=== PATIENT | female | born 1990 | race Caucasian/White ===

== ENCOUNTER → 2024-07-07 09:26 | Outpatient (REF) | payer BC, OTHER, SELFPAY ==
[2024-07-07 12:05] LABS: % Basophils 0.4 % (0-2); % Eosinophils 2.8 % (0-6); % Immature Granulocytes 0.1 % (0-0.5); % Lymphocytes 47.5 % (20.5-51.1); % Monocytes 5.6 % (1.7-9.3); % Neutrophils 43.6 % (42.2-75.2); Absolute Eosinophils 0.2 10^3/uL (0-0.7); Absolute Lymphocytes 3.7 10^3/uL (1.2-3.4); Absolute Monocytes 0.4 10^3/uL (0.1-0.6); Absolute Neutrophils 3.4 10^3/uL (1.4-6.5); Hematocrit 41.8 % (37.0-47.0); Hemoglobin 13.5 g/dL (12.0-16.0); Mean Corp Hgb Conc. 32.3 g/dL (33.0-37.0); Mean Corpuscular Hgb 27.3 pg (27.0-31.0); Mean Corpuscular Volume 84.6 fL (81.0-99.0); Mean Platelet Volume 8.9 fL (7.4-10.4); Nucleated Red Blood Cells % 0 %; Platelet Count 222 10^3/uL (130-400); Red Blood Cell Count 4.94 10^6/uL (4.20-5.40); Red Cell Dist. Width 13.7 % (11.5-14.5); White Blood Cell Count 7.9 10^3/uL (4.8-10.8)
[2024-07-07 12:14] LABS: Urine Albumin Negative (Neg - Trace); Urine Bilirubin Negative (Negative); Urine Character Clear (Clear); Urine Color Yellow; Urine Glucose Negative (Negative); Urine Ketone Negative (Negative); Urine Leukocyte Negative (Negative); Urine Nitrite Negative (Negative); Urine Occult Blood Negative (Negative); Urine Specific Gravity 1.025 (<1.030); Urine Urobilinogen Negative (Neg - 1+)
[2024-07-07 12:51] LABS: ALT (SGPT) 19 U/L (0-35); AST (SGOT) 26 U/L (14-36); Albumin 4.8 g/dl (3.5-5.0); Alkaline Phosphatase 100 U/L (38-126); Blood Urea Nitrogen 15 mg/dl (7-17); Calcium 9.4 mg/dl (8.4-10.2); Carbon Dioxide 26 mmol/L (22-30); Chloride 100 mmol/L (98-107); Glucose 84 mg/dl (70-99); HDL Cholesterol 74 mg/dl; LDL Cholesterol, Calculated 104 mg/dl; Potassium 4.4 mmol/L (3.5-5.1); Sodium 138 mmol/L (135-145); Total Bilirubin 0.1 mg/dl (0.2-1.3); Total Cholesterol 207 mg/dl (50-199); Total Protein 7.6 g/dl (6.3-8.2); Triglyceride 148 mg/dl (10-149); Very Low Density Lipoprotein 29 mg/dl (0-30); eGFR > 60.00
[2024-07-07 13:05] LABS: Hepatitis C Antibody Reactive (Negative)
[2024-07-07 13:59] LABS: TSH Reflex To Free T4 3.06 uIU/ml (0.47-4.68)
== END ==
LOC: HWLAB 09:26
PROVIDERS: ATTENDING PHYSICIAN Internal Medicine
DX: Z13.31 Encounter for screening for depression (principal); Z72.0 Tobacco use; Z00.00 Encounter for general adult medical examination without abnormal findings; Z87.898 Personal history of other specified conditions
CPT/HCPCS: 36415; 80053; 80061; 81003; 84443; 85025; 86803; 87389

== ENCOUNTER → 2024-07-13 08:28 | Outpatient (REF) | payer BC, OTHER, SELFPAY | LOC: HWLAB 08:28 | PROVIDERS: ATTENDING PHYSICIAN Internal Medicine | DX: Z86.19 Personal history of other infectious and parasitic diseases (principal) | CPT/HCPCS: 36415; 87902 ==

== ENCOUNTER 2025-04-11 21:41 | Inpatient (IN) | payer BC, SELFPAY ==
[2025-04-11] VITALS (12 sets, daily range): BP systolic 121–153; BP diastolic 78–109; BMI 27.1
--- NOTE | 2025-04-11 14:12 | ED.GENMED ---
History of Present Illness
General
Chief Complaint: Abdominal Symptoms
Source: patient, family (group home mother at bedside she does not really want to stay) and other (Her drug and alcohol abuse sponsor is at bedside)
Exam Limitations: none
Time Seen by Provider: 04/11/25 14:11
Nursing documentation reviewed up to this point in time: agreed with
History of Present Illness
History of Present Illness:
35-year-old female with history of seizures, anxiety, bipolar disorder, depression, substance abuse on presents stating she has not had a bowel movement in over a month. Has been nauseous with vomiting 'here and there,' 2 days ago vomited about 4
times, initially brown colored but that cleared up. Her stomach feels distended.
She smokes tobacco and uses 2-6 bags snorted at a time of Fentanyl 4-6 times a day and per her sponsor and mom, this is overseen by Psychiatrist, drug counselors, etc.
Pt denies CP, has had DELONG past few weeks, denies fever/chills.
Saw her PCP in September and had video conference in January for abd pain and was ordered out pt blood work, upper abd US and Obstruction Series which she never got done as she wasn't feeling well at times and was on vacation.
Past History
Past History
ED Past Medical History: Arrthythmia (Tachycardia), Asthma, Seizures, Psychiatric (Obsessive Compulsive disorder, Anxiety, Depression, Bipolar, substance abuse), Other (IVDA-heroin, urinary retention) and Other (OCD, depression, Cellulitis, Overdose)
ED Past Surgical History: Other (wisdom teeth)
Social History
Tobacco: Smoker
Alcohol: None
Drug: Marijuana, Cocaine, Narcotics (Fentanyl) and IVDA (Heroin)
Personal: Single
Living: with family
Family History
Family History: Other
Review of Systems
Review of Systems
Allergies reviewed?: Yes
All Other Systems: ROS reviewed and negative except as documented in HPI and ROS
Phy Exam
Physical Exam
Physical Exam:
GENERAL: No acute distress. A&Ox3.
CONSTITUTIONAL: Afebrile.
EYES: clear, conjunctivae normal
ENMT: moist mucus membranes, Pharynx nl
RESPIRATORY: Regular respirations, nonlabored, lungs clear.
CARDIOVASCULAR: Regular rate and rhythm, no murmurs, no rubs.
GI: Semi firm, distended, no BS audible.
MUSCULOSKELETAL: Moves with ease. Well perfused.
SKIN: Warm, dry, pink
PSYCH: Normal mood and affect. Well kept, interactive and appropriate
NEUROLOGIC: Awake, alert and oriented. No focal neurological deficits
Scores
COW Clinical Opiate Withdrawal Scale
Resting Pulse Rate: 81-100
Sweating-over past 30min not from room temp or activity: Flushed or observable moistness on face
Restlessness-observation during assessment: Able to sit still
Pupil Size: Pupils moderately dilated
Bone or Joint Aches: Not present
Runny Nose or Tearing-not accounted for by cold/allergies: Not present
GI Upset-over last 30min: Nausea or loose stool
Tremor-observation of outstretched hands: Tremor can be felt, but not observed
Yawning-observation during assessment: No yawning
Anxiety or Irritability: Patient reports increasing irritability or anxiousness
Gooseflesh Skin: Skin is smooth
Score: 9
Withdrawal Severity: Mild Withdrawal, consider starting Suboxone
Course
Orders/Labs/Results
Orders:
Orders
04/11/25 14:23
Morphine Sulfate 4 mg IV NOW STA
04/11/25 14:24
Ondansetron Injectable [Zofran] 4 mg IV NOW STA
04/11/25 14:43
CT Abd/pel W Iv And Oral Contr Urgent
Comment:
Reason For Exam: abd distention, no BM for a month
Iohexol [Omnipaque] See Protocol PO NOW STA
Test Result ONCE
04/11/25 14:46
0.9% Sodium Chloride 1000 ml [Nss] 1,000 ml IV BOLUS
04/11/25 14:57
Basic Metabolic Panel Urgent
Complete Blood Count/With Diff Urgent
Fentanyl, Urine Urgent
HCV by PCR [HCV Quantitative by NAAT] [S] Urgent
Hepatitis A IgM Antibody Urgent
Hepatitis B Core Ab, IgM Urgent
Hepatitis B Surface Antibody Urgent
Hepatitis B Surface Antigen Urgent
Lipase Urgent
Urinalysis Reflex To Culture Urgent
Date Specimen was Collected: 04/11/25
Time Specimen was Collected: 14:49
Urine Microscopic Reflex Cult Urgent
Urine Culture Urgent
RAISA Source: U
Specimen Description:
Date Specimen was Collected: 04/11/25
Time Specimen was Collected: 14:49
04/11/25 16:51
Add On- LAB Urgent
Tests Added?: serum qualitative beta Hcg
04/11/25 17:49
Alcohol Urgent
HCG, Serum Qualitative Screen Urgent
Comment: MUST BE COLLECTED. ALL TUBES IN THE LAB ARE HEMOLYZED
04/11/25 19:56
Lorazepam [Ativan] 1 mg IV NOW STA
04/11/25 20:00
Buprenorphine HCl [Belbuca] 300 mcg BUCCAL ONCE ONE
04/11/25 21:02
Add On- LAB Urgent
Comments:: Xylazine Urine Drug Screen (send out)
Tests Added?: Xylazine
Electrocardiogram (*1) Routine
Reason for Study: QTc Monitoring
Comment: if not already done in ED
Urine Drug Abuse Screen Urgent
0.9% Sodium Chloride [Nss (Preservative Free)] See Protocol IV PRN PRN
Clonidine [Catapres] 0.1 mg PO Q6HPRN PRN
HydrOXYZINE [Atarax] 50 mg PO Q6HPRN PRN
Ketorolac [Toradol] 10 mg IV Q6HPRN PRN
Lorazepam [Ativan] 2 mg IV ONCE PRN PRN
Naloxone [Narcan] 0.4 mg IV Q5MPRN PRN
Ondansetron Injectable [Zofran] 4 mg IV Q6HPRN PRN
Oxycodone [Roxicodone] 20 mg PO Q4HPRN PRN
Tizanidine [Zanaflex] 2 mg PO Q6HPRN PRN
Clinical Opioid Withdrawal Scale (COWS) Q4
Frequency:: now, Q4 hours x 24 hours, then PRN based on symptoms
04/11/25 21:04
Admit/Transfer Patient As Directed
Co-Sign Provider:
Level of Care: Inpatient admission
Assign to:: ICU
Physician / Group: Ezequiel
Diagnosis: Opioid withdrawal
Reason for Hospitalization: opioid withdrawal, constipation
Expected length of stay greater than two midnights?: Yes
ELOS- Estimated Length of Stay in days: 2
I certify the patient meets the requirements for IP care: Yes
PRN Pain Medication Management As Directed
May give lesser potent ordered pain med per pt: Yes
preference::
Protocol:: Medication orders for pain may be administered in a
manner that supports deferring to patient preference
when the pt is:
- Requesting an ordered lesser potent pain medication.
Least to most potent pain medications are defined
as: acetaminophen < NSAID < tramadol < opioids
(morphine, oxycodone, hydromorphone).
- Requesting a lesser dose of the same medication IF
ORDERED.
- Requesting a less intrusive route of administration
if both routes are prescribed by the provider (PO <
IV).
04/11/25 21:07
Code Status As Directed
Resuscitation Status: Full Code
04/11/25 22:09
0.9% Sodium Chloride [Nss (Preservative Free)] See Protocol IV PRN PRN
Bisacodyl [Dulcolax] 10 mg RECTAL [id number] PRN
Clonidine [Catapres] 0.1 mg PO Q6HPRN PRN
Dextrose 5%/Lactringers 1000ML [D5lr] 1,000 ml IV 125 mls/hr
Diphenhydramine [Benadryl] 50 mg PO Q6HPRN PRN
HydrOXYZINE [Atarax] 50 mg PO Q6HPRN PRN
Ketorolac [Toradol] 10 mg IV Q6HPRN PRN
Lorazepam [Ativan] 2 mg IV ONCE PRN PRN
Naloxone [Narcan] 0.4 mg IV Q5MPRN PRN
Ondansetron Injectable [Zofran] 4 mg IV Q6HPRN PRN
Oxycodone [Roxicodone] 20 mg PO Q4HPRN PRN
Quetiapine Fumarate [Seroquel] 25 mg PO DAILYPRN PRN mental health
Tizanidine [Zanaflex] 2 mg PO Q6HPRN PRN
04/11/25 22:09
Electrocardiogram (*1) Routine
Reason for Study: QTc Monitoring
Comment: if not already done in ED
Case Management Consult ONCE
Case Management Consult: Other
Comment: opioid withdrawal
DX Deep Vein Thrombosis Video Routine
04/12/25 00:00
Buprenorphine HCl [Belbuca] 300 mcg BUCCAL Q4
Buprenorphine HCl [Belbuca] 300 mcg BUCCAL Q4
Oxycodone Controlled Release [Oxycontin (Controlled Release)] 40 mg PO Q8
Oxycodone Controlled Release [Oxycontin (Controlled Release)] 40 mg PO Q8
04/12/25 Breakfast
Clear Liquid
At Your Request: Full Participation
Basic Metabolic Panel IN AM
Complete Blood Count/No Diff IN AM
[id number]-Pjjf-Ogibttf IN AM
Magnesium IN AM
04/12/25 08:00
Docusate Sodium [Colace] 100 mg PO BID
Fluvoxamine [Luvox] 25 mg PO BID
Lactulose [Duphalac/Chronulac] 20 grams PO DAILY
Lurasidone HCl [Latuda] 60 mg PO DAILY
Pantoprazole [Protonix] 40 mg PO DAILY
Polyethylene Glycol Powder [Miralax] 17 grams PO DAILY
Sennosides [Senokot] 8.6 mg PO BID
linaclotide [Linzess] See Dose Instructions PO DAILY
04/12/25 18:00
Enoxaparin Sodium [Lovenox] 40 mg SC QPM
04/12/25 22:00
Buprenorphine [Subutex] 2 mg SL QID
Buprenorphine [Subutex] 2 mg SL QID
04/13/25 22:00
Buprenorphine [Subutex] 4 mg SL QID
Buprenorphine [Subutex] 4 mg SL QID
04/14/25 00:00
Oxycodone Controlled Release [Oxycontin (Controlled Release)] 20 mg PO Q8
Oxycodone Controlled Release [Oxycontin (Controlled Release)] 20 mg PO Q8
04/14/25 21:03
Buprenorphine [Subutex] 2 mg SL Q4HPRN PRN
04/14/25 21:07
Buprenorphine [Subutex] 2 mg SL Q4HPRN PRN
04/15/25 08:00
Buprenorphine [Subutex] 8 mg SL BID@
Buprenorphine [Subutex] 8 mg SL BID@
04/16/25 08:00
Buprenorphine [Subutex] 16 mg SL DAILY@0800
Buprenorphine [Subutex] 16 mg SL DAILY@0800
Abnormal Lab Results
04/11/25
14:57
Sodium 134 L mmol/L
(135-145)
Glucose 112 H mg/dl
(70-99)
Ur Occult Blood Reflex 1+ A
(Negative)
Urine Urobilinogen 2+ A
(Neg - 1+)
Leukocyte Esterase Rfl 3+ A
(Negative)
Urine RBC 7-10 A /HPF
(0-2)
Urine WBC (Reflex) 16-20 A /HPF
(0-5)
Urine Bacteria (Reflex) Many A
(Negative)
Urine Glucose 2+ A
(Negative)
Urine Albumin (Reflex) 2+ A
(Neg - Trace)
Urine Fentanyl Screen Positive H
(Negative)
04/11/25 14:57
04/11/25 14:57
Vital Signs
Initial and Last Documented VS:
Initial Vital Signs
Temp Pulse Resp BP Pulse Ox
98.4 F 77 20 132/93 99
04/11/25 13:21 04/11/25 13:21 04/11/25 13:21 04/11/25 13:21 04/11/25 13:21
Last Documented Vital Signs
Temp Pulse Resp BP Pulse Ox
98.4 F 139 30 135/91 97
04/11/25 13:21 04/11/25 22:16 04/11/25 22:16 04/11/25 22:16 04/11/25 21:30
MDM/Problems Addressed
Differential Diagnosis Includes:
bowel obstruction, constipation
MDM/Problems Addressed:
35-year-old female with history of seizures, anxiety, bipolar disorder, depression, substance abuse on presents stating she has not had a bowel movement in over a month. Has been nauseous with vomiting 'here and there,' 2 days ago vomited about 4
times, initially brown colored but that cleared up. Her stomach feels distended.
She smokes tobacco and uses 2-6 bags snorted at a time of Fentanyl 4-6 times a day and per her sponsor and mom, this is overseen by Psychiatrist, drug counselors, etc.
Pt denies CP, has had DELONG past few weeks, denies fever/chills.
Saw her PCP in September and had video conference in January for abd pain and was ordered out pt blood work, upper abd US and Obstruction Series which she never got done as she wasn't feeling well at times and was on vacation.
Afebrile, NAD
Abdomen distended, generally tender, no guarding
4:30 PM:
CBC normal
CMP normal
UA: WBC 16-20 with many bacteria, +3 leukocytes, negative nitrates, culture pending
7:45 PM: CT abdomen pelvis with p.o. and IV contrast radiology report read: IMPRESSION:
Constipation with large colonic fecal burden involving the ascending colon, transverse colon, and proximal to mid descending colon. In the distal descending colon, there is a relatively abrupt change in caliber to relatively collapsed distal
descending colon and sigmoid colon. Uncertain etiology. No apparent mass or wall thickening. No inflammatory soft tissue stranding.
Dense metallic focus with streak artifact adjacent to the bladder dome. This may also be associated with the adjacent cecum. Correlation with surgical history necessary.
Patient is seeing she is starting to go through withdrawal from methadone. COWS score 8.
Case discussed with Dr. Mitchell. Agrees with buprenorphine 300 mg
Hospitalist notified of admission
Patient remains alert and oriented, appropriate
*Pulse Oximetry
SaO2: 99
Oxygen Mode of Delivery: Room air
Patient hypoxic: no
*Critical Care Note
Total Time (30-74mins, 75-104mins- exclusive of procedures): Not Applicable
ED Attending Note
-
Portions of this chart may have been created with voice recognition software.� Occasional wrong word or��sound alike� substitutions may have occurred due to the inherent limitations of voice recognition software.
Discharge Plan
Departure
Patient Disposition: Admit
Date of Disposition: 04/11/25
Time of Disposition: 19:51
Presentation/result/management discussed w/ accepting MD/DO: Hospitalist
Condition: Fair
Discharge Problem:
Opioid abuse with withdrawal, Constipation
Interventions
Interventions:
*Risk Screen - Suicide Last Done: 04/11/25 19:18
*General Assessment Last Done: 04/11/25 13:21
*Neglect/Abuse Screening Last Done: 04/11/25 13:21
*ED- Fall Risk Assessment Last Done: 04/11/25 19:18
*ED COVID-19 Vaccine History Last Done: 04/11/25 19:18
*ED Influenza Vaccine History Last Done: 04/11/25 19:18
*Nursing Disposition Last Done: 04/11/25 22:29
NH-Kyolhy-Fykrdqoqsp Assessment Last Done: 04/11/25 14:07
Discharge Date and Time
Discharge Date/Time: 04/11/25 22:29
[2025-04-11 15:19] LABS: Hematocrit 37.0 % (37.0-47.0); Hemoglobin 12.7 g/dL (12.0-16.0); Mean Corp Hgb Conc. 34.3 g/dL (33.0-37.0); Mean Corpuscular Volume 84.9 fL (81.0-99.0); Nucleated Red Blood Cells % 0 %; Platelet Count 291 10^3/uL (130-400); Red Cell Dist. Width 12.7 % (11.5-14.5)
[2025-04-11] MEDS: NSS 1000 IV (15:28)
[2025-04-11] MEDS: OMNIPAQUE 50 ML PO (15:28)
[2025-04-11 15:41] LABS: Blood Urea Nitrogen 12 mg/dl (7-17); Calcium 9.2 mg/dl (8.4-10.2); Carbon Dioxide 25 mmol/L (22-30); Chloride 102 mmol/L (98-107); Glucose 112 mg/dl (70-99); Lipase 110 U/L (23-300); Sodium 134 mmol/L (135-145); eGFR > 60.00
[2025-04-11 16:33] LABS: Urine Character Slightly Cloudy (Clear)
[2025-04-11 16:51] LABS: Urine Squamous Cell >30 /LPF (Few)
[2025-04-11 16:54] LABS: Urine White Cell 16-20 /HPF (0-5)
[2025-04-11 18:15] LABS: HCG, Serum Qualitative Screen Negative
--- NOTE | 2025-04-11 19:25 | EDRN ---
patient last used fentanyl (snorted) at 11am. Patient does take methadone at home, but last took yesterday (04/10). Patient is diaphoretic and tremulous in room. notified UPSET WELDING MACHINE OPERATOR Lynne of findings. Patient's mom at bedside
[2025-04-11] MEDS: ATIVAN 1 MG IV (20:02)
--- NOTE | 2025-04-11 20:05 | EDRN ---
Patient refusing belbuca film at this time in fear of going into 'precip'. Provider made aware. Patient given ordered ativan
--- NOTE | 2025-04-11 20:35 | HPS.HSE ---
Family Physician
-
Family Physician: Sharita Parra DO
Chief Complaint
-
Constipation
History of Present Illness
This is a 35-year-old female with past medical history significant for asthma, depression/bipolar, history of opioid dependence, migraine headaches who presents to the emergency department with 1 month of constipation and abdominal pain and weakness.
Per patient and family she is currently on methadone 60 mg daily on all rehab protocol however due to concern for xylazine withdrawal patient has been taking street fentanyl. She states she uses 5 bags daily and I last use was 11 AM today. She
reports that she has been having constipation for a long time now but she became severe for over the last 1 month. She does not even remember when she last had a bowel movement. She has seen GI in the past and is currently on Linzess. She was
recommended lifestyle modification. She reports nausea and vomiting.
In the Emergency Department the patient was afebrile, blood pressure of 150/100 with a pulse rate of 84 initially now 136-150. And she was satting 99% on room air. CBC was unremarkable, electrolytes BUN/creatinine were all within normal range. UA
was unremarkable. CT of the abdomen pelvis shows a large colonic fecal burden involving the ascending transverse colon and proximal to mid descending colon.
Medical History
Past Medical History
Past Medical History: Reports Other (: Arrthythmia (Tachycardia), Seizures, Psychiatric (Obsessive Compulsive disorder, Anxiety, Depression,Bipolar),)
Past Surgical History: Reports None and Other
Additional Past Surgical History:
Arrthythmia (Tachycardia), Seizures, Psychiatric (Obsessive Compulsive disorder, Anxiety, Depression,Bipolar),
Social History
Tobacco: Smoker
Alcohol: None
Personal: Single
Living: Correction
Family History
Family History: Not pertinent
Allergies / Home Medications
Allergies reflects when Allergies were last updated in [facility].
Home Medications with original date entered in [facility]
Allergy/Medication List:
Allergies
Allergy/AdvReac Type Severity Reaction Status Date / Time
hydrocodone bitartrate (From Allergy TACHYCARDIA Verified 04/11/25 13:25
Vicodin)
Home Medications
fluvoxamine 25 mg tablet 25 mg PO BID Mental Health/Anxiety 04/11/22
clonidine HCl 0.1 mg tablet 0.1 mg PO TIDPRN PRN anxiety 04/11/25
esomeprazole magnesium 40 mg capsule,delayed release (Nexium) 40 mg PO DAILY gerd 04/11/25
linaclotide 290 mcg capsule (Linzess) 290 mcg PO DAILY Constipation 04/11/25
lurasidone 60 mg tablet (Latuda) 60 mg PO DAILY Mental Health/Anxiety 04/11/25
methadone 10 mg/mL oral concentrate mg PO DAILY 04/11/25
norethindrone acetate 1 mg-ethinyl estradiol 20 mcg tablet (Junel) 1 tab PO DAILY control 04/11/25
quetiapine 25 mg tablet (Seroquel) 25 mg PO DAILYPRN PRN mental health 04/11/25
Review of Systems
-
Constitutional: Reports No Symptoms
EENT: Reports No Symptoms
Respiratory: Reports No Symptoms
Cardiac: Reports No Symptoms
Abdomen/GI: Reports Abdominal Pain, Nausea and Constipated
: Reports No Symptoms
Musculoskeletal: Reports No Symptoms
Skin: Reports No Symptoms
Neurological: Reports No Symptoms
Endocrine: Reports No Symptoms
Hematologic/Lymphatic: Reports No Symptoms
Psych: Reports No Symptoms
Physical Exam
Vital Signs
Vital Signs
Temp Pulse Resp BP Pulse Ox
98.4 F 84 18 153/104 99
04/11/25 13:21 04/11/25 19:17 04/11/25 19:17 04/11/25 19:17 04/11/25 19:17
Physical Exam
General: Well Developed, Well Nourished and No Apparent Distress
HEENT: NormoCephalic, Moist mucous membranes and Atraumatic
Respiratory: Clear
Cardiac: S1/S2, Regular Rhythm and Tachycardia; No Murmur or Rub
GI: Soft, Non Tender, Non Distended and Normal Bowel Sounds; No Organomegaly
Rectal: Deferred by Provider
Musculoskeletal: No Clubbing, No Cyanosis and No Edema
Skin: No Rash
Neuro: Nonfocal/grossly intact
Psych: Agitated and Anxious
Laboratory Results
-
04/11/25 14:57
04/11/25 14:57
Laboratory Results
Total Bilirubin Cancelled 04/11/25 14:57
AST Cancelled 04/11/25 14:57
ALT Cancelled 04/11/25 14:57
Alkaline Phosphatase Cancelled 04/11/25 14:57
Lipase 110 U/L (23-300) 04/11/25 14:57
Data Reviewed
-
CT Scan: Report Reviewed by me
Lab Data: Labs Reviewed by me
Old Records: Reviewed
Impression/Plan
-
IMPRESSION:
35-year-old with history of opioid dependence which uses 5 bags of fentanyl a day and is also on methadone presenting to the emergency department with constipation and developed opioid withdrawal. Last dose of opioid was at 11 AM. Constipation
likely secondary to chronic opioid use. She is at risk for both opioid and xylazine withdrawal. She denies IV drugs. She snorts the fentanyl. Originally came in for constipation but is now in acute opioid withdrawal. She is tachycardic to the
150s. She is tremulous and hypertensive.
PLAN:
Opioid withdrawal -last use 11 AM, currently tachycardic and hypertensive and tremulous with a COWS score of 22. High risk of xylazine withdrawal. May need precedex.
- Admit to ICU for now
- Initiate opioid microdosing protocol with COWS
- adjunctive therapies as per protocol
- iv fluids
- consider precedex for uncontrolled withdrawal
- Patient also on methadone 60 mg daily, check ECG
- Will not continue methadone for now
Constipation - opioid dependent, severe with possible more proximal impaction affecting the ascending and transverse colon. The distal colon and rectum is decompressed, no role for digital disimpaction
- clear liquid diet
- start bowel regimen orally
- suppositories and fleet enema
- continue linaclotide
- continue ppi
- GI consultation
Continue her sorquel and fluvoxamine
DVT PPX - lovenox sq
Code status - Full Code
[2025-04-11] MEDS: ZOFRAN 4 MG IV (21:57)
[2025-04-11] MEDS: PRECEDEX 100 IV (22:26)
--- NOTE | 2025-04-11 22:28 | EDRN ---
Report originally called to Michael in IMU. Upon arrival to IMU the decision was made to place her in ICU. Report given to SEVERIANO Goins.
[2025-04-11] MEDS: D5LR 1000 IV (22:33)
[2025-04-11] MEDS: ATIVAN 2 MG IV (22:49)
[2025-04-11] MEDS: COMPAZINE 10 MG IV (22:49)
[2025-04-11] MEDS: NSS (PRESERVATIVE FREE) 1 ML IV (22:49)
[2025-04-11 22:57] LABS: INR 0.84; PT 12.0 Sec (11.4-14.6)
[2025-04-11 22:58] LABS: APTT 19.7 Sec (23.4-35.0)
--- NOTE | 2025-04-11 23:00 | PTCARENOTE ---
Patient arrived from the ED at approximately 2215. AAOx3, anxious and restless. Patient diaphoretic, tremulous, and vomiting. COWS score per worklist. Precedex gtt started and titrated to effect - see worklist. SR/ST on monitor. POX 96-99% on room
air - lungs diminished. Abd distended w/ hypoactive bowel sounds. Patient vomited approximately 4 times small amounts of green/brown. Patient w/ D5LR running as ordered through 20 ENRIQUE.
[2025-04-11 23:09] LABS: Magnesium 1.8 mg/dl (1.6-2.3)
[2025-04-12] VITALS (38 sets, daily range): BP systolic 114–178; BP diastolic 74–127; BMI 25.9
[2025-04-12] MEDS: BELBUCA BUCCAL (00:35)
[2025-04-12] MEDS: DILAUDID 0.5 MG IV ×2 (00:56→06:02)
--- NOTE | 2025-04-12 01:15 | PTCARENOTE ---
Systems reviewed. COWS per worklist. Patient reports feeling improved. Patient refusing belbuca. One time dose of IV Dilaudid ordered and administered d/t patient vomiting and unable to tolerate PO Oxy - see AUG.
[2025-04-12] MEDS: CATAPRES 0.1 MG PO ×4 (02:42→23:37)
[2025-04-12] MEDS: ZOFRAN 4 MG IV (03:47)
[2025-04-12 04:03] LABS: Hematocrit 38.4 % (37.0-47.0); Hemoglobin 13.0 g/dL (12.0-16.0); Mean Corp Hgb Conc. 33.9 g/dL (33.0-37.0); Mean Corpuscular Volume 87.7 fL (81.0-99.0); Platelet Count 331 10^3/uL (130-400); Red Cell Dist. Width 12.6 % (11.5-14.5)
[2025-04-12 04:22] LABS: ALT (SGPT) 48 U/L (0-35); AST (SGOT) 30 U/L (14-36); Albumin 4.3 g/dl (3.5-5.0); Alkaline Phosphatase 508 U/L (38-126); Blood Urea Nitrogen 5 mg/dl (7-17); Calcium 9.4 mg/dl (8.4-10.2); Carbon Dioxide 23 mmol/L (22-30); Chloride 105 mmol/L (98-107); Estimated Creatinine Clearance 113 ml/min; Glucose 135 mg/dl (70-99); Magnesium 1.7 mg/dl (1.6-2.3); Potassium 3.6 mmol/L (3.5-5.1); Sodium 140 mmol/L (135-145); Total Protein 7.1 g/dl (6.3-8.2); eGFR > 60.00
[2025-04-12] MEDS: ROXICODONE 20 MG PO (04:52)
[2025-04-12] MEDS: BELBUCA 300 MCG BUCCAL ×5 (04:53→20:17)
[2025-04-12] MEDS: PRECEDEX 100 IV ×3 (05:22→14:33)
[2025-04-12] MEDS: COMPAZINE 10 MG IV (05:46)
[2025-04-12] MEDS: D5LR 1000 IV ×3 (05:46→20:20)
[2025-04-12] MEDS: BENADRYL 50 MG IV (06:02)
--- NOTE | 2025-04-12 06:11 | PTCARENOTE ---
Patient w/ increasing restlessness/anxiety. Patient nauseous and vomiting. PRN oxy/zofran administered w/ no relief. Precedex gtt increased - see worklist. FINANCIAL SALES REPRESENTATIVE notified - one time dose of IV compazine/diluadid/benadryl ordered and administered -
see AUG.
[2025-04-12] MEDS: MAGNESIUM SULFATE 50 IV (06:35)
--- NOTE | 2025-04-12 07:07 | CON.INTV ---
Addendum entered and electronically signed by Tricia Lindo MD 04/12/25 13:50:
Patient seen and examined independently by myself. Resident note reviewed below. Agree with assessment and plan. Difficult to obtain history from the patient as patient currently sleeping. 35-year-old female with history of asthma, bipolar
disorder, opioid despondence who takes daily fentanyl and methadone, apparently [address]anyl daily last use 5 hours prior to presentation. Patient also has chronic GI issues including constipation. She was brought to [facility] because of because of nausea and emesis. Imaging suggested constipation. She was tachycardic, requiring initiation of treatment for opioid withdrawal. COWS score on arrival was 22. Patient admitted to ICU for further management
04/11/2025
.
PMH: History of anxiety, depression, bipolar disorder. History of wisdom teeth removal. History suggests seizures in the past. She had an arm abscess surgically removed.
Social history, active smoker, also snorts drugs. Does not drink alcohol. Uses methadone and fentanyl, heroin, cocaine. Of note she snorts fentanyl. She is single.
Allergies hydrocodone (from Vicodin) which causes tachycardia
Physical exam. Patient is lying, sleeping at this time on her side. Chest exam is clear. No edema
Full exam deferred due to emesis bag and sleeping comfortably
Data reviewed
Abdominal CT images without evidence of parenchymal disease. She does have kyphoscoliosis on her chest x-ray, mild interstitial changes. EKG sinus tachycardia. Alkaline phosphatase 508, normal creatinine, hemoglobin
A/P
At this time, patient with opioid withdrawal, last used fentanyl 5 hours, use it on a daily basis. Patient also has history of polysubstance abuse including cocaine, heroin. Apparently snorts fentanyl
Moving forward, continue with withdrawal protocol
Follow COWS score.
GI following patient receiving Dilaudid, appears comfortable at this time, no tachycardia
Describes allergy to hydrocodone from Vicodin in the past, allergies tachycardia
Replete electrolytes
Aspiration precautions
Patient has poor access, will request midline
Reviewed with critical care nursing, respiratory care, pharmacy
TCCT 32 min
Original Note:
Consultation
Consultation Request
Date/Time Consultation Requested: 04/11/2025 22:15
Date/Time Consultation Performed: 04/12/2025 7:08
Requesting Provider: Gabriel Nieves MD
Performing Provider: Tricia Lindo MD
Reason for Consultation: Opioid Withdrawal
Medical History
-
Chief Complaint: Constipation and Vomiting
History of Present Illness:
This is a 35 y/o female with pmhx of asthma, migraine headaches, bipolar disorder and opioid dependence who presented to the ED on 04/11/2025 with 1 month history of abdominal pain, nausea, vomiting, weakness and constipation. She currently takes
methadone 60mg daily and [address]anyl daily with last use approximately 5 hours prior to presentation. She did see a toy consultant for her longstanding constipation, who prescribed her Linzess and recommended lifestyle
modifications.
In the ED BP was 150/100 with initially normal pulse that then increased to 130s-150s. CMP revealed an Alk Phos of 508, compared to normal levels earlier this year. ALT 48, AST 30. CBC within normal limits. Urinalysis was not a clean catch. UDS
positive for methadone, fentanyl, amphetamines, methamphetamines. Hepatitis studies are pending. CT scan of the abdomen/pelvis showed large colonic fecal burden of the ascending transverse colon and proximal to mid descending colon. It also showed a
dense metallic focus with streak artifact adjacent to the bladder dome which may be associated with adjacent cecum.
Today she reports significant nausea. She has not had a bowel movement yet. She does not remember the last time she had a bowel movement. She denies any abdominal pain, chest pain, shortness of breath. She confirms her surgical history for me, and
has never had a abdomen/pelvic surgery. She is currently not able to tolerate any oral intake, as when she takes pills she vomits.
Past Medical History
Past Medical History: Arrhythmias (Tachycardia), Seizures and Psychiatric (OCD, Anxiety, Depression, Bipolar)
Past Surgical History: Other ([place] teeth removal, Arm abscesses surgically removed)
Social History
Tobacco: Smoker
Alcohol: None
Drug: Other (Methadone, Fentanyl)
Personal: Single
Living: Residential
Family History
Family History: Reviewed & Not Pertinent
Allergies / Home Medications
Allergies
Allergy/AdvReac Type Severity Reaction Status Date / Time
hydrocodone bitartrate (From Allergy TACHYCARDIA Verified 04/11/25 13:25
Vicodin)
Home Medications
�Medication �Instructions �Recorded �Confirmed �Last Taken �Type
fluvoxamine 25 mg tablet 25 mg PO BID Mental Health/Anxiety 04/11/22 04/11/25 06/15/22 19:00 History
clonidine HCl 0.1 mg tablet 0.1 mg PO TIDPRN PRN anxiety 04/11/25 04/11/25 Unknown History
esomeprazole magnesium 40 mg 40 mg PO DAILY gerd 04/11/25 04/11/25 Unknown History
capsule,delayed release (Nexium)
linaclotide 290 mcg capsule 290 mcg PO DAILY Constipation 04/11/25 04/11/25 Unknown History
(Linzess)
lurasidone 60 mg tablet (Latuda) 60 mg PO DAILY Mental 04/11/25 04/11/25 Unknown History
Health/Anxiety
methadone 10 mg/mL oral concentrate mg PO DAILY 04/11/25 04/10/25 History
norethindrone acetate 1 mg-ethinyl 1 tab PO DAILY control 04/11/25 04/11/25 Unknown History
estradiol 20 mcg tablet (Junel)
quetiapine 25 mg tablet (Seroquel) 25 mg PO DAILYPRN PRN mental health 04/11/25 04/11/25 Unknown History
Review of Systems
-
History Source: Patient
Respiratory: No Symptoms
Cardiac: No Symptoms
Abdomen/GI: Nausea, Vomiting and Constipated
Neuro: Other (Tremors)
Vitals / Labs / Diagnostic Testing
Vital Signs
Temp Pulse Resp BP Pulse Ox
98.4 F 93 21 145/96 99
04/11/25 13:21 04/12/25 01:15 04/12/25 01:15 04/12/25 01:15 04/12/25 01:15
Lab Data
04/12/25 03:14
04/12/25 03:14
Laboratory Results
04/11/25
22:41
PT 12.0
INR 0.84
APTT 19.7 L
Diagnostic Testing:
Physical Exam
-
HEENT: Normocephalic and Anicteric
Cardiovascular: S1/S2, Regular Rhythm and Other (Tachycardia)
Respiratory: Clear and Non-Labored Respirations
GI: Non Tender and Other (Hypoactive bowel sounds)
Neurology: Awake, Alert and Oriented
Skin: Warm, Dry and Good Color
General: Comfortable
Assessment
-
Assessment:
This is a 35 y/o female with pmhx of asthma, migraine headaches, bipolar disorder and opioid dependence on 60mg methadone who presented to the ED on 04/11/2025 with 1 month history of abdominal pain, nausea, vomiting, weakness and constipation with
last fentanyl use 11AM that same day now being treated for opioid dependence with active opioid withdrawal, as well as opioid-induced constipation.
Plan:
Opioid Dependence with active Opioid Withdrawal
Patient with reported methadone 60mg daily and daily fentanyl use x5 bags. Last use 11AM on 04/11
COWS scores on arrival 22
COWs score most recently 20 this AM with RASS of 0, peak of 25 overnight with RASS score of 3
As of this note she has received 300 mcg buprenorphine, 20mg oxycodone, 3mg Lorazepam, 0.1mg clonidine, 50mg Benadryl, 1mg hydromorphone.
D/c Zofran
Continue microdosing protocol with COWS (One dose given)
Continue Precedex drip, plan to wean
Hold Methadone while admitted
Constipation
Likely secondary to Opioid dependence
Per CT Scan abdomen/Pelvis 04/11: Constipation with large colonic fecal burden involving the ascending colon, transverse colon, and proximal to mid descending colon. In the distal descending colon, there is a relatively abrupt change in caliber to
relatively collapsed distal descending colon and sigmoid colon. Uncertain etiology. No apparent mass or wall thickening. No inflammatory soft tissue stranding. Dense metallic focus with streak artifact adjacent to the bladder dome. This may also be
associated with the adjacent cecum. Correlation with surgical history necessary.
Patient does not report any surgical history of the abdomen.
Continue clear liquid diet
Patient not currently tolerating PO therapy, but oral bowel regimen has been ordered (Scheduled Colace BID, Miralax daily, Senokot BID)
Continue suppositories and enemas as needed
Continue home Linaclotide
GI has been consulted by the admitting team, will appreciate their insight into her case
Bipolar Disorder
Anxiety
Continue Seroquel 25mg, Lurasidone 60mg and Fluvoxamine 25mg BID
Elevated Alk Phos
New on admission, Alk Phos of 508, compared to normal levels earlier this year. ALT 48, AST 30
Continue to trend
--- NOTE | 2025-04-12 07:32 | CON.GI ---
Addendum entered and electronically signed by Maria Del Rosario Graff DO 04/12/25 10:56:
considering methylnatrexone SC, however, the abrupt change in caliber of the descending colon - need to ensure she's not obstructed and will start with an enema.
Original Note:
Consultation
-
Date/Time Consultation Requested: 04/12/2025
Date/Time Consultation Performed: 04/12/2025
Requesting Provider: Hospitalist
Performing Provider: Dr. Graff
Reason for Consultation: Opiate induced constipation
Medical History
Chief Complaint / HPI
Chief Complaint: Abdominal pain nausea vomiting
History of Present Illness:
Yara is a 35-year-old female with history of bipolar, anxiety depression IV drug use who continues to snort heroin and is on methadone, history of prior abscess from IV drug abuse, hepatitis C who came to the hospital for abdominal pain with
nausea vomiting with no bowel movement in over a month. She denies any abdominal pain. She is currently withdrawing with shaking and intermittent vomiting brown liquid material
At baseline she does not have a bowel movement for 2 to 3 weeks and sometimes a month. She has tried [id number] medications and in January she saw Dr. Lind in our office who gave her Linzess 290.
She is on multiple medications for withdrawal including a Precedex drip. She is awake and vomited in front of me
Attempted NG tube at bedside but unsuccessful. Will let her calm down and come back
OBJECTIVE DATA REVIEW (obtained from review of labs/meditech/outside scanned records/previous other providers reports):
---04/12/2025 in the morning temperature 99.5 has been afebrile
--- Abdomen pelvis CT 04/11/2025: With IV and oral contrast for abdominal distention and no bowel movement for a month on opiates with intermittent vomiting. Normal liver gallbladder bile ducts 7 mm and stable normal pancreas, bowel shows large
colonic fecal burden throughout the colon except the rectum in the distal descending colon relatively abrupt change in the caliber no apparent mass or wall thickening. No inflammatory soft tissue stranding. No dilated small bowel loops to suggest
small bowel obstruction
--- 04/12/2025 labs include white count 12.8, hemoglobin 13, platelets 331, normal coagulation factor normal BMP, AST 30, ALT 48, alkaline phosphatase 508, total bilirubin 0.7, negative test, positive UDS for methadone fentanyl
amphetamines methamphetamines hepatitis panel pending
07/07/2024 WBC 7.9 hemoglobin 13.5 MCV 84.6 platelets 222 sodium 138 potassium 4.4 chloride 100 bicarb 26 BUN 15 creatinine 0.8 glucose 84 calcium 9.4 total bilirubin 0.1 AST 26 ALT 19 alkaline phosphatase 100 total protein 7.6 albumin 4.8
triglycerides 148 total cholesterol 207 LDL 104 HDL 74 TSH 3.06 HIV negative hep C antibody reactive hep C genotype indeterminate
04/11/2022 HCV RNA not detected
04/13/2022 MRI with MRCP no choledocholithiasis or cholecystitis, single intrauterine gestation, trace bilateral pleural effusions, trace abdominal pelvic ascites, normal liver, normal pancreas.
Past Medical History
Past Medical History: Other (polysubstance abuse, hep C with negative viral load in the past, history of withdrawal, bipolar anxiety depression)
Past Surgical History: Other (I&D abscess)
Social History
Tobacco: Smoker
Drug: IVDA and Other (Snorts fentanyl)
Living: With Family
Family History
Family History: Reviewed & Not Pertinent
Allergies / Home Medications
Allergy/AdvReac Type Severity Reaction Status Date / Time
hydrocodone bitartrate (From Allergy TACHYCARDIA Verified 04/11/25 13:25
Vicodin)
�Medication �Instructions �Recorded
fluvoxamine 25 mg tablet 25 mg PO BID Mental Health/Anxiety 04/11/22
clonidine HCl 0.1 mg tablet 0.1 mg PO TIDPRN PRN anxiety 04/11/25
esomeprazole magnesium 40 mg 40 mg PO DAILY gerd 04/11/25
capsule,delayed release (Nexium)
linaclotide 290 mcg capsule 290 mcg PO DAILY Constipation 04/11/25
(Linzess)
lurasidone 60 mg tablet (Latuda) 60 mg PO DAILY Mental 04/11/25
Health/Anxiety
methadone 10 mg/mL oral concentrate mg PO DAILY 04/11/25
norethindrone acetate 1 mg-ethinyl 1 tab PO DAILY control 04/11/25
estradiol 20 mcg tablet (Junel)
quetiapine 25 mg tablet (Seroquel) 25 mg PO DAILYPRN PRN mental health 04/11/25
Review of Systems
-
Unable to obtain full review of systems at this time due to: Acuity
History Source: Patient
Vital Signs
Temp Pulse Resp BP Pulse Ox
98.4 F 93 21 145/96 99
04/11/25 13:21 04/12/25 01:15 04/12/25 01:15 04/12/25 01:15 04/12/25 01:15
Physical Exam
Exam
General: Other (Shaking and vomiting)
HEENT: Anicteric
GI: Soft, Non Tender and Normal Bowel Sounds
Neuro: AO x 3 and Tremors
Results
WBC 12.8 10^3/uL (4.8-10.8) H 04/12/25 03:14
Hgb 13.0 g/dL (12.0-16.0) 04/12/25 03:14
Hct 38.4 % (37.0-47.0) 04/12/25 03:14
MCV 87.7 fL (81.0-99.0) 04/12/25 03:14
Plt Count 331 10^3/uL (130-400) 04/12/25 03:14
Absolute Neuts (auto) 3.0 10^3/uL (1.4-6.5) 04/11/25 14:57
PT 12.0 Sec (11.4-14.6) 04/11/25 22:41
INR 0.84 04/11/25 22:41
APTT 19.7 Sec (23.4-35.0) L 04/11/25 22:41
Sodium 140 mmol/L (135-145) 04/12/25 03:14
Potassium 3.6 mmol/L (3.5-5.1) 04/12/25 03:14
Chloride 105 mmol/L (98-107) 04/12/25 03:14
Carbon Dioxide 23 mmol/L (22-30) 04/12/25 03:14
BUN 5 mg/dl (7-17) L 04/12/25 03:14
Creatinine 0.6 mg/dL (0.6-1.0) 04/12/25 03:14
Calcium 9.4 mg/dl (8.4-10.2) 04/12/25 03:14
Total Bilirubin 0.7 mg/dl (0.2-1.3) 04/12/25 03:14
AST 30 U/L (14-36) 04/12/25 03:14
ALT 48 U/L (0-35) H 04/12/25 03:14
Alkaline Phosphatase 508 U/L (38-126) H 04/12/25 03:14
Lipase 110 U/L (23-300) 04/11/25 14:57
Hepatitis C Antibody Cancelled 04/11/25 14:47
Diagnostic Image Results:
OBJECTIVE DATA REVIEW (obtained from review of labs/meditech/outside scanned records/previous other providers reports):
---04/12/2025 in the morning temperature 99.5 has been afebrile
--- Abdomen pelvis CT 04/11/2025: With IV and oral contrast for abdominal distention and no bowel movement for a month on opiates with intermittent vomiting. Normal liver gallbladder bile ducts 7 mm and stable normal pancreas, bowel shows large
colonic fecal burden throughout the colon except the rectum in the distal descending colon relatively abrupt change in the caliber no apparent mass or wall thickening. No inflammatory soft tissue stranding. No dilated small bowel loops to suggest
small bowel obstruction
--- 04/12/2025 labs include white count 12.8, hemoglobin 13, platelets 331, normal coagulation factor normal BMP, AST 30, ALT 48, alkaline phosphatase 508, total bilirubin 0.7, negative test, positive UDS for methadone fentanyl
amphetamines methamphetamines hepatitis panel pending
07/07/2024 WBC 7.9 hemoglobin 13.5 MCV 84.6 platelets 222 sodium 138 potassium 4.4 chloride 100 bicarb 26 BUN 15 creatinine 0.8 glucose 84 calcium 9.4 total bilirubin 0.1 AST 26 ALT 19 alkaline phosphatase 100 total protein 7.6 albumin 4.8
triglycerides 148 total cholesterol 207 LDL 104 HDL 74 TSH 3.06 HIV negative hep C antibody reactive hep C genotype indeterminate
04/11/2022 HCV RNA not detected
04/13/2022 MRI with MRCP no choledocholithiasis or cholecystitis, single intrauterine gestation, trace bilateral pleural effusions, trace abdominal pelvic ascites, normal liver, normal pancreas.
Assessment / Plan
-
Yara is a 35-year-old female with history of bipolar disorder polysubstance abuse who came to the emergency room with 1 month without a bowel movement without abdominal pain as well as vomiting currently withdrawing from fentanyl using 5 bags
daily also on methadone 60 mg daily. GI was consulted for constipation
# Constipation -opiate induced
-- Patient unable to take oral intake due to vomiting from withdrawal
-- Will give milk of molasses enema although not much distal stool on imaging
-- Consider methylnaltrexone SC after the enema
# Vomiting -likely multifactorial but more from withdrawal
-- NG tube when able to intermittent suction -I attempted multiple times. Will allow her to calm down and then nurse will try again
-- Try to avoid Zofran which is more constipating, use benzodiazepines
-- N.p.o. with sips of clears and ice chips as tolerated
Twice daily PPI
Data Reviewed
-
Radiology: Image Personally Visualized and interpreted
CT Scan: Image Personally Visualized and interpreted and Report Reviewed by me
Old Records: Reviewed
-
-
Thank you for consultation and allowing me to participate in the patient's care. Please call the [facility] physician during the after hours with any questions or concerns.
[2025-04-12] MEDS: KCL 270 MEQ IV (07:52)
[2025-04-12] MEDS: ATARAX 50 MG PO (07:53)
--- NOTE | 2025-04-12 08:07 | W.PN.HOSP.TC ---
Today's Communication/Plan
-
Continue Precedex drip and buprenorphine as tolerated
COWS protocol
May require propofol and intubation if she worsens
Assessment / Plan
Assessment / Plan
#Severe opioid withdrawal
- Presented with COWS score 22; suspected xylazine withdrawal; last use 11 AM 04/11
- Was started on buprenorphine micro dosing protocol, had worsening and required initiation of Precedex
- Chronically on methadone 60 mg daily which was held on admission; continues to have significant withdrawal
- Will continue with Precedex drip and buprenorphine as tolerated
- May require propofol and intubation if P condition worsens
- ICU on board, appreciate recommendations
- COWS monitoring
#Constipation
- Likely opioid induced, imaging with likely fecal impaction to proximal colon, no role for digital disimpaction with distal decompression
- Chronically on lactulose hide, was started on oral bowel regimen with suppositories and Fleet enema as well
- GI consulted, may require endoscopy
#Leukocytosis
- WBC 12.8 this morning, was normal on arrival; suspect reactive event
- Trend CBC and temperature curve off antibiotics for now
#Bipolar disorder
#MDD
- Remains on home Seroquel, lurasidone, and fluvoxamine
- Monitor QTc on multiple psychiatric agents
Diet: CLD
Thromboprophylaxis: SQ Lovenox
CODE STATUS: Full code
Disposition: Remain in ICU, possibly rehab at discharge
Discussed with ICU
Anticipated Discharge: > 48 hours
Subjective/Interval History
-
Date of Service: April 12, 2025
Seen and examined at the bedside. No acute events reported overnight. AFVSS this morning on Precedex drip
Continues to have significant agitation despite max dose Precedex drip.
ROS limited by acuity though patient states she does feel slightly better at this time than arrival, still very nauseous
Objective Data
-
Labs:
Laboratory Results
04/11/25 04/12/25
22:41 03:14
WBC 12.8 H
Hgb 13.0
Hct 38.4
Plt Count 331
PT 12.0
INR 0.84
APTT 19.7 L
Sodium 140
Potassium 3.6
Chloride 105
Carbon Dioxide 23
BUN 5 L
Creatinine 0.6
Glucose 135 H
Calcium 9.4
Total Bilirubin 0.7
AST 30
ALT 48 H
Alkaline Phosphatase 508 H
Vital Signs:
Vital Signs
Temp Pulse Resp BP Pulse Ox
99.5 F 93 21 145/96 99
04/12/25 07:40 04/12/25 01:15 04/12/25 01:15 04/12/25 01:15 04/12/25 01:15
I&O
04/11/25 04/12/25 04/13/25
06:59 06:59 06:59
Intake Total 1025.0 / 1025.0
Output Total 450 / 450
Balance 575.0 / 575.0
Review of Systems
-
Unable to obtain full review of systems at this time due to: Acuity
Physical Exam
-
General: Well Developed, Well Nourished and Appears in Distress
HEENT: Normocephalic, Atraumatic, Moist Mucous Membranes and Anicteric
Respiratory: Clear to Auscultation and Non Labored Respirations; Negative Accessory Resp Muscle Use
Cardiac: Regular Rhythm and S1/S2; Negative Murmur, Rub or Gallop
GI: Soft, Nontender, Normal Bowel Sounds and Distended
Musculoskeletal: No Clubbing, No Cyanosis and No Edema
Skin: Warm and Dry; Negative Rash
Neuro: Awake, Alert, Tremors, Nonfocal/Grossly Intact and Central Nerve's Intact
Psych: Agitated
--- NOTE | 2025-04-12 08:15 | PTCARENOTE ---
Addendum entered by Elva Armstrong RN 04/12/25 09:19:
prior shift vital signs filed. unable to verify accuracy
Original Note:
report received. assessments per work list. patient alrt, anxious. precedex@1.5. c/o nuausea. vomited oral medication. emesis brown. abdomen soft with hyperactive bowel sounds. passing flatus. hospitalist contacted regarding inability to take oral
medications. orders pending. reviewed plan of care, medication regime. call jarquin in hand, bed alarm activated
[2025-04-12] MEDS: LATUDA PO (08:51)
[2025-04-12] MEDS: LUVOX PO (08:51)
[2025-04-12] MEDS: COLACE PO (08:51)
[2025-04-12] MEDS: CATAPRES-TTS-2 0.2 MG TRANSDERM (08:52)
[2025-04-12] MEDS: MIRALAX PO (08:52)
[2025-04-12] MEDS: SENOKOT PO (08:52)
[2025-04-12] MEDS: NSS (PRESERVATIVE FREE) 0.5 ML IV (08:54)
[2025-04-12] MEDS: ATIVAN 1 MG IV (08:54)
[2025-04-12] MEDS: ZYPREXA 5 MG IM ×3 (09:50→23:37)
[2025-04-12] MEDS: STERILE WATER FOR INJECTION 2.1 ML IM ×3 (09:51→23:36)
[2025-04-12] MEDS: DILAUDID 2 MG IV ×4 (10:07→22:40)
[2025-04-12] MEDS: PROTONIX IV 40 MG IV (10:07)
--- NOTE | 2025-04-12 10:31 | PTCARENOTE ---
Dr Graff in to evaluate. patient continues to have intermittent nausea and vomiting. Dr Graff attempted to place NGT, unsuccessful. see prn administration
[2025-04-12] MEDS: COMPAZINE 5 MG IV ×2 (10:52→16:56)
[2025-04-12] MEDS: NSS (PRESERVATIVE FREE) 10 ML IV (11:07)
--- NOTE | 2025-04-12 13:10 | PTCARENOTE ---
patient reassessed. precedex wean per work list. patient remains cooperative. milk and molasses enema given without issue. had small brown yellow stool post enema.
--- NOTE | 2025-04-12 14:58 | CM ---
Initial assessment completed with parents. Patient lives with parents and 40 y/o brother in a 3 story plus basement home with B/B on 2nd and 1/2 bath on 1st, 3 steps to enter. [employer] patient was independent in ADL's and ambulation, does not drive,
does not work. No DME. No in-home services. No HC-POA. No VA benefits. No psychiatric hospitalizations. PCP is Dr. Sharita Parra. Pharmacy is [facility] in [place]. Discharge POC: TBD. [facility]ARES involved.
--- NOTE | 2025-04-12 15:57 | PTCARENOTE ---
Addendum entered by Elva Armstrong RN 04/12/25 17:11:
Dr Graff updated with patient status, aware ngt not placed. no vomiting since the am
Original Note:
reassessed. patient c/o increased anxiety at times and 'feeling hot'. see prn administration. monitor nsr, lungs with tubular breath sounds bilaterally. denies nausea or need to void at this time. patient mother at bedside. updated with plan of care
[2025-04-12] MEDS: TRANDATE 10 MG IV (16:01)
[2025-04-12] MEDS: LOVENOX 40 MG SC (17:50)
[2025-04-12 18:25] LABS: Hepatitis B Surface Antigen Negative (Negative)
--- NOTE | 2025-04-12 20:00 | PTCARENOTE ---
on assessment pt aaox3, restless but drowsy, ST/SR on the monitor, RA, no N/V at this time, loose stools on bedside commode, IVF running at 125/hr, bed alarm on and call jarquin in reach
[2025-04-12] MEDS: COLACE 100 MG PO (20:20)
[2025-04-12] MEDS: SENOKOT 8.6 MG PO (20:20)
[2025-04-12] MEDS: LUVOX 25 MG PO (20:20)
[2025-04-12] MEDS: SUBUTEX 2 MG SL (22:41)
--- NOTE | 2025-04-12 23:56 | PTCARENOTE ---
pt increasingly restless, PRN meds given see AUG, bed alarm on and call jarquin in reach
[2025-04-13] VITALS (14 sets, daily range): BP systolic 135–178; BP diastolic 82–112; BMI 26.3
[2025-04-13] MEDS: DILAUDID 2 MG IV ×3 (01:43→09:23)
[2025-04-13 02:58] LABS: Hematocrit 36.4 % (37.0-47.0); Hemoglobin 12.0 g/dL (12.0-16.0); Mean Corp Hgb Conc. 33.0 g/dL (33.0-37.0); Mean Corpuscular Volume 87.1 fL (81.0-99.0); Nucleated Red Blood Cells % 0 %; Platelet Count 336 10^3/uL (130-400); Red Cell Dist. Width 13.1 % (11.5-14.5)
[2025-04-13 03:22] LABS: Blood Urea Nitrogen 4 mg/dl (7-17); Calcium 9.1 mg/dl (8.4-10.2); Carbon Dioxide 23 mmol/L (22-30); Chloride 108 mmol/L (98-107); Estimated Creatinine Clearance 111 ml/min; Glucose 118 mg/dl (70-99); Magnesium 2.0 mg/dl (1.6-2.3); Potassium 3.9 mmol/L (3.5-5.1); Sodium 139 mmol/L (135-145); eGFR > 60.00
--- NOTE | 2025-04-13 04:10 | PTCARENOTE ---
no changes from prior assessment, bed alarm on and call jarquin in reach
--- NOTE | 2025-04-13 05:08 | W.PN.GI.CBS2 ---
Today's Communication / Plan
-
Please see assessment and plan for details.
Assessment / Plan
-
1. Nausea/vomiting/constipation: With most symptoms, with chronic opiate induced constipation likely secondary to withdrawal. She did have extensive fecal burden on CT scan, though no signs of obstruction. She did have results with enemas and is
feeling much better today, her exam is benign. There was a question about change in caliber in her colon, though given her chronic symptoms and age underlying malignancy seems much less likely. Again, I think many of her symptoms are likely
related more to withdrawal which is now doing much better. At this point would continue clear liquids for today, if tolerates then would be able to to advance later today. Will continue PPI, supportive care, MiraLAX for now. Pending clinical
course could consider outpatient colonoscopy.
2. Elevated LFTs: With history of reactive hep C antibody in the past, though by report negative RNA. No signs of biliary colic, exam again is benign. Will continue to trend for now and await repeat RNA.
Subjective
Subjective
Date of Service: April 13, 2025
The patient is overall feeling better, no further vomiting, no abdominal pain overnight, tolerated some water last night without difficulty. Overall feels much better. She did have results with enemas, feels less distended.
Objective
Data Reviewed
Laboratory Data:
Laboratory Results
04/13/25 02:41
04/13/25 02:41
Laboratory Results
PT 12.0 Sec (11.4-14.6) 04/11/25 22:41
INR 0.84 04/11/25 22:41
APTT 19.7 Sec (23.4-35.0) L 04/11/25 22:41
Phosphorus 3.2 mg/dl (2.5-4.5) 04/11/25 22:41
Magnesium 2.0 mg/dl (1.6-2.3) 04/13/25 02:41
Total Bilirubin 0.7 mg/dl (0.2-1.3) 04/12/25 03:14
AST 30 U/L (14-36) 04/12/25 03:14
ALT 48 U/L (0-35) H 04/12/25 03:14
Alkaline Phosphatase 508 U/L (38-126) H 04/12/25 03:14
Lipase 110 U/L (23-300) 04/11/25 14:57
Vital Signs and I&O:
Vital Signs
Temp Pulse Resp BP Pulse Ox
100.6 F H 84 18 178/94 97
04/13/25 03:00 04/13/25 04:00 04/13/25 04:00 04/13/25 04:00 04/12/25 15:53
I&O
04/11/25 04/12/25 04/13/25
06:59 06:59 06:59
Intake Total 1025.0 / 1198.3 2992.3 / 2992.3
Output Total 450 / 450 700 / 700
Balance 575.0 / 748.3 2292.3 / 2292.3
Physical Exam
Physical Exam
General: NAD
Abdomen: normal bowel sounds, soft, no tenderness, no masses or bruits, no ascites
[2025-04-13] MEDS: CATAPRES 0.1 MG PO (05:54)
--- NOTE | 2025-04-13 07:10 | W.PN.INTV ---
Addendum entered and electronically signed by Tricia Lindo MD 04/13/25 10:32:
Patient seen and examined independently by myself. Resident note reviewed below. Agree with assessment and plan
Significant improvement over last 24 hours, off Precedex since yesterday p.m. Nausea has resolved, moved bowels yesterday
Patient is without complaints
Vitals are stable, on room air
Blood pressure 150s/80s, pulse 90s
Chest exam is clear, abdominal exam is benign
No edema
No tremor
Data reviewed
Blood work unremarkable
A/P
Continue with withdrawal protocol
Blood pressure noted, will increase clonidine
Transition to oral oxycodone. 30 mg every 8 hours for 24 hours then 20 mg every 8 hours for 24 hours
Encourage ambulation
Reviewed with primary service, pharmacy, critical care nursing, respiratory care
For transfer out of ICU
We will sign off. Please call with questions
Original Note:
Today's Communication / Plan
Recommendations
New Oxycodone regimen: 40mg Q8h x3 doses, 20mg Q8h x3 doses, off
Increased clonidine to 0.2 Q6
Downgrade to telemetry today
Assessment
-
Assessment:
This is a 35 y/o female with pmhx of asthma, migraine headaches, bipolar disorder and opioid dependence on 60mg methadone who presented to the ED on 04/11/2025 with 1 month history of abdominal pain, nausea, vomiting, weakness and constipation with
last fentanyl use 11AM that same day now being treated for opioid dependence with active opioid withdrawal, as well as opioid-induced constipation.
Plan:
Opioid Dependence with active Opioid Withdrawal
Patient with reported methadone 60mg daily and daily fentanyl use x5 bags. Last use 11AM on 04/11
COWS scores on arrival 22
Precedex has been successfully weaned at this time
Increase Clonidine from 0.1mg Q6H to 0.2mg Q6H
Changed Oxycodone dosing so she will receive 40mg Q8H for 1 day, then 20mg Q8H for 1 day, then can stop it completely
Continue microdosing protocol with COWS
Hold Methadone while admitted
Constipation -Resolved
Likely secondary to Opioid dependence
Per CT Scan abdomen/Pelvis 04/11: Constipation with large colonic fecal burden involving the ascending colon, transverse colon, and proximal to mid descending colon. In the distal descending colon, there is a relatively abrupt change in caliber to
relatively collapsed distal descending colon and sigmoid colon. Uncertain etiology. No apparent mass or wall thickening. No inflammatory soft tissue stranding. Dense metallic focus with streak artifact adjacent to the bladder dome. This may also be
associated with the adjacent cecum. Correlation with surgical history necessary.
Patient does not report any surgical history of the abdomen.
Continue clear liquid diet
Patient no longer nauseous and vomiting, now with bowel movements
Continue stool softeners, suppositories and enemas as needed
Continue home Linaclotide
Gastroenterology is following, will appreciate their insight
Bipolar Disorder
Anxiety
Continue Seroquel 25mg, Lurasidone 60mg and Fluvoxamine 25mg BID
Elevated Alk Phos
New on admission, Alk Phos of 508, compared to normal levels earlier this year. ALT 48, AST 30
Continue to trend
Subjective Dataa
Subjective Data
Date of Service:
Date of Service: April 13, 2025
Chief Complaint: Directory Operator Follow Up
Subjective:
Patient was resting comfortably in her bed when I arrived. She has been free of nausea and vomiting since yesterday. She also had several bowel movements yersterday. Overall, she feels significantly better.
Review of Systems
General: Fever (Denies) and Chills (Denies)
Cardiopulmonary: Cough (Denies), Wheezing (Denies) and Chest Pain (Denies)
GI: Abdominal Pain (Denies), Nausea (Denies), Vomiting (Denies), Diarrhea (Denies) and Constipation (Denies)
Objective Data
Data Reviewed
Vital Signs / I&O / Oxygen:
Vital Signs
Temp Pulse Resp BP Pulse Ox
100.6 F H 107 18 158/88 97
04/13/25 03:00 04/13/25 06:00 04/13/25 06:00 04/13/25 06:00 04/12/25 15:53
Intake and Output
04/12/25 04/13/25 04/14/25
06:59 06:59 06:59
Intake Total 1025.0 / 1198.3 2992.3 / 2992.3
Output Total 450 / 450 700 / 700
Balance 575.0 / 748.3 2292.3 / 2292.3
SaO2 97
Physical Exam
General: Comfortable
HEENT: Normocephalic and Anicteric
Cardiovascular: S1-S2, Regular Rhythm and Other
Respiratory: Clear
Neurology: Awake, Alert and Oriented
Skin: Warm, Dry and Good Color
Labs/Micro/Reports
Lab Data
04/13/25 02:41
04/13/25 02:41
Microbiology
04/11/25 14:57 Urine Urine Culture - Final
[2025-04-13] MEDS: LATUDA 60 MG PO (07:42)
[2025-04-13] MEDS: LUVOX 25 MG PO ×2 (07:42→20:56)
[2025-04-13] MEDS: MIRALAX 17 GRAMS PO (07:43)
[2025-04-13] MEDS: SUBUTEX 2 MG SL ×3 (07:43→17:34)
[2025-04-13] MEDS: PROTONIX IV 40 MG IV (07:43)
[2025-04-13] MEDS: NSS (PRESERVATIVE FREE) 10 ML IV (07:43)
[2025-04-13] MEDS: SENOKOT 8.6 MG PO ×2 (07:44→20:56)
[2025-04-13] MEDS: COLACE 100 MG PO (07:44)
[2025-04-13 07:57] LABS: ALT (SGPT) 36 U/L (0-35); AST (SGOT) 28 U/L (14-36); Albumin 3.9 g/dl (3.5-5.0); Alkaline Phosphatase 354 U/L (38-126); Total Protein 6.6 g/dl (6.3-8.2)
--- NOTE | 2025-04-13 08:03 | PTCARENOTE ---
Addendum entered by Elva Armstrong RN 04/13/25 10:18:
patient c/o generalized anxiety and discomfort. prn medications administered per order
Original Note:
report received. assessments per work list. patient denies anxiety, nausea. tremulous with activity. monitor nsr@rest, tachycardic to 160's with ambulation. lungs with coarse breath sounds. abdomen soft, active bowel sounds. assisted to bathroom,
voiding large amounts yellow urine. reviewed plan of care. call jarquin in reach. bed alarm activated
--- NOTE | 2025-04-13 08:14 | W.PN.HOSP.TC ---
Today's Communication/Plan
-
Continue buprenorphine protocol
Monitor COWS
Bowel regimen
Advance diet if continue to improve
Assessment / Plan
Assessment / Plan
#Severe opioid withdrawal
- Presented with COWS score 22; suspected xylazine withdrawal; last use 11 AM 04/11
- Was started on buprenorphine micro dosing protocol, had worsening and required initiation of Precedex
- Chronically on methadone 60 mg daily which was held on admission; withdrawal now starting to improve
- S/p Precedex; Will continue with buprenorphine protocol; clonidine patch + PO Q6 ordered; PRN opiates
- COWS monitoring
#Constipation
- Likely opioid induced, imaging with likely fecal impaction to proximal colon, no role for digital disimpaction with distal decompression
- Chronically on Linzess, was started on oral bowel regimen with suppositories and Fleet enema as well which was effective
- GI consulted, recommended to continue bowel regimen and plan for OP colonoscopy
#Leukocytosis
- WBC 12.8 this morning, was normal on arrival; suspect reactive event
- Trend CBC and temperature curve off antibiotics for now
#Bipolar disorder
#MDD
- Remains on home Seroquel, lurasidone, and fluvoxamine
- Monitor QTc on multiple psychiatric agents
Diet: CLD, plan to advance later if tolerating
Thromboprophylaxis: SQ Lovenox
CODE STATUS: Full code
Disposition: Remain in ICU, possibly rehab at discharge
Discussed with ICU
Anticipated Discharge: > 48 hours
Subjective/Interval History
-
Date of Service: April 13, 2025
Seen and examined at the bedside. No acute events reported overnight. AFVSS this morning, hemodynamics improved.
Patient still tremulous though states she feels better. Passed stool yesterday, does not complain of constipation today
Denies any new complaints this morning.
Objective Data
-
Labs:
Laboratory Results
04/13/25 04/13/25 04/13/25
02:41 02:41 02:41
WBC 12.3 H
Hgb 12.0
Hct 36.4 L
Plt Count 336
Sodium Cancelled 139
Potassium Cancelled 3.9
Chloride Cancelled
Carbon Dioxide
BUN
Creatinine
Glucose
Calcium
Total Bilirubin
AST
ALT
Alkaline Phosphatase
04/13/25 04/13/25 04/13/25
02:41 02:41 02:41
WBC
Hgb
Hct
Plt Count
Sodium
Potassium
Chloride 108 H
Carbon Dioxide Cancelled 23
BUN Cancelled 4 L
Creatinine Cancelled
Glucose
Calcium
Total Bilirubin
AST
ALT
Alkaline Phosphatase
04/13/25 04/13/25 04/13/25
02:41 02:41 02:41
WBC
Hgb
Hct
Plt Count
Sodium
Potassium
Chloride
Carbon Dioxide
BUN
Creatinine 0.6
Glucose Cancelled 118 H
Calcium Cancelled 9.1
Total Bilirubin 0.7
AST 28
ALT 36 H
Alkaline Phosphatase 354 H
04/13/25
05:08
WBC
Hgb
Hct
Plt Count
Sodium
Potassium
Chloride
Carbon Dioxide
BUN
Creatinine
Glucose
Calcium
Total Bilirubin Cancelled
AST Cancelled
ALT Cancelled
Alkaline Phosphatase Cancelled
Vital Signs:
Vital Signs
Temp Pulse Resp BP Pulse Ox
99.3 F 86 19 153/102 97
04/13/25 08:00 04/13/25 08:00 04/13/25 07:30 04/13/25 08:00 04/13/25 08:00
I&O
04/12/25 04/13/25 04/14/25
06:59 06:59 06:59
Intake Total 1025.0 / 1198.3 2992.3 / 2992.3
Output Total 450 / 450 700 / 700
Balance 575.0 / 748.3 2292.3 / 2292.3
Review of Systems
-
History Source: Patient
All other systems: Reviewed and negative
Physical Exam
-
General: Well Developed, No Apparent Distress and Other (Appears unwell)
HEENT: Normocephalic, Atraumatic, Moist Mucous Membranes and Anicteric
Respiratory: Clear to Auscultation and Non Labored Respirations; Negative Accessory Resp Muscle Use
Cardiac: Regular Rhythm and S1/S2; Negative Murmur, Rub or Gallop
GI: Soft, Nontender, Nondistended and Normal Bowel Sounds
Musculoskeletal: No Clubbing, No Cyanosis and No Edema
Skin: Warm and Dry; Negative Rash
Neuro: AO x 3, Tremors, Nonfocal/Grossly Intact and Central Nerve's Intact
Psych: Calm
Data Reviewed
-
Labs: Labs Reviewed by me and Discussed with Patient
[2025-04-13] MEDS: ZYPREXA 5 MG IM ×2 (10:06→15:35)
[2025-04-13] MEDS: STERILE WATER FOR INJECTION 2.1 ML IM ×2 (10:06→15:35)
[2025-04-13] MEDS: ROXICODONE 20 MG PO (10:06)
[2025-04-13] MEDS: CATAPRES 0.2 MG PO ×3 (11:17→23:39)
[2025-04-13] MEDS: ROXICODONE 30 MG PO ×2 (11:18→20:56)
--- NOTE | 2025-04-13 16:03 | CM ---
Transferred to Room 339-2. ANTHONY has visited patient. Patient has declined [facility] services. She intends on following through with an outpatient Methadone program. Parents in agreement.
[2025-04-13] MEDS: LOVENOX 40 MG SC (17:35)
[2025-04-13] MEDS: SUBUTEX 4 MG SL (22:12)
[2025-04-14] VITALS (7 sets, daily range): BP systolic 117–138; BP diastolic 71–91
[2025-04-14] MEDS: ROXICODONE 30 MG PO (04:12)
[2025-04-14] MEDS: SUBUTEX 4 MG SL ×3 (08:30→17:31)
[2025-04-14] MEDS: SENOKOT 8.6 MG PO ×2 (08:31→21:06)
[2025-04-14] MEDS: LUVOX 25 MG PO ×2 (08:31→21:06)
[2025-04-14] MEDS: LATUDA 60 MG PO (08:31)
[2025-04-14] MEDS: NSS (PRESERVATIVE FREE) 10 ML IV (08:33)
[2025-04-14] MEDS: PROTONIX IV 40 MG IV (08:33)
[2025-04-14] MEDS: MIRALAX 17 GRAMS PO (08:33)
[2025-04-14 08:48] LABS: Hematocrit 37.7 % (37.0-47.0); Hemoglobin 12.3 g/dL (12.0-16.0); Mean Corp Hgb Conc. 32.6 g/dL (33.0-37.0); Mean Corpuscular Volume 88.7 fL (81.0-99.0); Nucleated Red Blood Cells % 0 %; Platelet Count 326 10^3/uL (130-400); Red Cell Dist. Width 13.3 % (11.5-14.5)
--- NOTE | 2025-04-14 09:00 | W.PN.HOSP.TC ---
Today's Communication/Plan
-
Continue buprenorphine protocol
Continue with clonidine and other adjunct of agents
Plan for discharge within 24 hours, follow-up at methadone clinic
Assessment / Plan
Assessment / Plan
#Severe opioid withdrawal
- Presented with COWS score 22; suspected xylazine withdrawal; last use 11 AM 04/11
- Was started on buprenorphine micro dosing protocol, had worsening and required initiation of Precedex
- Chronically on methadone 60 mg daily which was held on admission; withdrawal now starting to improve
- S/p Precedex; Will continue with buprenorphine protocol; clonidine patch + PO Q6 ordered; PRN opiates
- Plan for buprenorphine maintenance therapy at discharge
- COWS monitoring while here
#Constipation
- Likely opioid induced, imaging with likely fecal impaction to proximal colon, no role for digital disimpaction with distal decompression
- Chronically on Linzess, was started on oral bowel regimen with suppositories and Fleet enema as well which was effective
- GI consulted, recommended to continue bowel regimen and plan for OP colonoscopy
#Leukocytosis
- WBC 12.8 this morning, was normal on arrival; suspect reactive event
- Trend CBC and temperature curve off antibiotics for now
#Bipolar disorder
#MDD
- Remains on home Seroquel, lurasidone, and fluvoxamine
- Monitor QTc on multiple psychiatric agents
Diet: Regular
Thromboprophylaxis: SQ Lovenox
CODE STATUS: Full code
Disposition: Home, denied the cares. Plans to follow-up with [facility] in [place]
Anticipated Discharge: Within 24 hours
Subjective/Interval History
-
Date of Service: April 14, 2025
Seen and examined at bedside. No acute events reported overnight. AFVSS this morning
Patient states she is having normal bowel movements, constipation resolved. States that she feels much better overall
Labs are stable. Patient eager for discharge
Objective Data
-
Labs:
Laboratory Results
11/01/25
07:56
WBC 10.4
Hgb 12.3
Hct 37.7
Plt Count 326
Sodium Pending
Potassium Pending
Chloride Pending
Carbon Dioxide Pending
BUN Pending
Creatinine Pending
Glucose Pending
Calcium Pending
Vital Signs:
Vital Signs
Temp Pulse Resp BP Pulse Ox
98.9 F 78 19 138/84 97
04/14/25 07:00 04/14/25 07:00 04/14/25 07:00 04/14/25 07:00 04/14/25 07:00
I&O
04/13/25 04/14/25 04/15/25
06:59 06:59 05:59
Intake Total 2992.3 / 2992.3 600 / 600
Output Total 700 / 700
Balance 2292.3 / 2292.3 600 / 600
Review of Systems
-
History Source: Patient
All other systems: Reviewed and negative
Physical Exam
-
General: Well Developed, No Apparent Distress and Appears Chronically Ill
HEENT: Normocephalic, Atraumatic, Moist Mucous Membranes and Anicteric
Respiratory: Clear to Auscultation and Non Labored Respirations
Cardiac: Regular Rhythm and S1/S2; Negative Murmur, Rub or Gallop
GI: Soft, Nontender, Nondistended and Normal Bowel Sounds
Musculoskeletal: No Clubbing, No Cyanosis and No Edema
Skin: Warm, Dry and Other (Scarring on the L UE from previous Tranq usage); Negative Rash
Neuro: AO x 3, Nonfocal/Grossly Intact and Central Nerve's Intact; Negative Tremors
Psych: Calm
Data Reviewed
-
Labs: Labs Reviewed by me and Discussed with Patient
[2025-04-14 09:15] LABS: Blood Urea Nitrogen 16 mg/dl (7-17); Estimated Creatinine Clearance 95 ml/min; Glucose 84 mg/dl (70-99)
[2025-04-14 09:16] LABS: Calcium 9.3 mg/dl (8.4-10.2); Carbon Dioxide 24 mmol/L (22-30); Chloride 109 mmol/L (98-107); Magnesium 2.5 mg/dl (1.6-2.3); Potassium 3.9 mmol/L (3.5-5.1); Sodium 145 mmol/L (135-145); eGFR > 60.00
--- NOTE | 2025-04-14 10:10 | W.PN.GI.CBS2 ---
Today's Communication / Plan
-
Please see assessment and plan for details.
Assessment / Plan
-
1. Nausea/vomiting/constipation: With most symptoms, with chronic opiate induced constipation likely secondary to withdrawal. She did have extensive fecal burden on CT scan, though no signs of obstruction. She did have results with enemas and is
feeling much better today, her exam is benign. There was a question about change in caliber in her colon, though given her chronic symptoms and age underlying malignancy seems much less likely. Again, I think many of her symptoms are likely
related more to withdrawal which is now doing much better. At this point advance diet. Will continue PPI, supportive care, MiraLAX for now. Pending clinical course could consider outpatient colonoscopy, she will follow-up with her primary
massage therapist on discharge.
2. Elevated LFTs: With history of reactive hep C antibody in the past, though negative RNA. No signs of biliary colic, exam again is benign, LFTs trended down.
We will sign off now, please go back with any further questions.
Subjective
Subjective
Date of Service: April 14, 2025
Patient feeling okay, denies abdominal pain, did have a bowel movement, no vomiting, tolerating diet without difficulty.
Objective
Data Reviewed
Laboratory Data:
Laboratory Results
04/14/25 07:56
04/14/25 07:56
Laboratory Results
PT 12.0 Sec (11.4-14.6) 04/11/25 22:41
INR 0.84 04/11/25 22:41
APTT 19.7 Sec (23.4-35.0) L 04/11/25 22:41
Phosphorus 3.2 mg/dl (2.5-4.5) 04/11/25 22:41
Magnesium 2.5 mg/dl (1.6-2.3) H 04/14/25 07:56
Total Bilirubin Cancelled 04/13/25 05:08
AST Cancelled 04/13/25 05:08
ALT Cancelled 04/13/25 05:08
Alkaline Phosphatase Cancelled 04/13/25 05:08
Lipase 110 U/L (23-300) 04/11/25 14:57
Vital Signs and I&O:
Vital Signs
Temp Pulse Resp BP Pulse Ox
98.9 F 78 19 138/84 97
04/14/25 07:00 04/14/25 07:00 04/14/25 07:00 04/14/25 07:00 04/14/25 09:11
I&O
04/13/25 04/14/25 04/15/25
06:59 06:59 05:59
Intake Total 2992.3 / 2992.3 600 / 600
Output Total 700 / 700
Balance 2292.3 / 2292.3 600 / 600
Physical Exam
Physical Exam
General: NAD
Abdomen: normal bowel sounds, soft, no tenderness, no masses or bruits, no ascites
[2025-04-14] MEDS: ROXICODONE 20 MG PO ×2 (12:19→21:07)
[2025-04-14] MEDS: ATARAX 50 MG PO ×2 (14:03→21:55)
[2025-04-14] MEDS: BENADRYL 50 MG IV (15:03)
[2025-04-14] MEDS: LOVENOX 40 MG SC (17:31)
[2025-04-14] MEDS: SEROQUEL 25 MG PO (21:54)
[2025-04-14 22:38] LABS: HCV Quant by NAAT IU/mL Not Detected; HCV Quant by NAAT Interp Not Detected (Not Detected); HCV Quant by NAAT Log IU/mL Not Detected log IU/mL
[2025-04-15] MEDS: COMPAZINE 5 MG IV (01:30)
[2025-04-15] MEDS: BENADRYL 50 MG IV ×2 (01:43→12:32)
[2025-04-15] MEDS: ZYPREXA 5 MG IM ×2 (02:43→15:53)
[2025-04-15 03:00] VITALS: BP 153/99
[2025-04-15] MEDS: ROXICODONE 20 MG PO (04:36)
[2025-04-15 07:00] VITALS: BP 131/92
[2025-04-15] MEDS: LUVOX 25 MG PO (08:18)
[2025-04-15] MEDS: MIRALAX 17 GRAMS PO (08:18)
[2025-04-15] MEDS: LATUDA 60 MG PO (08:19)
[2025-04-15] MEDS: SENOKOT 8.6 MG PO (08:19)
[2025-04-15] MEDS: PROTONIX IV 40 MG IV (08:21)
[2025-04-15] MEDS: NSS (PRESERVATIVE FREE) 10 ML IV (08:21)
[2025-04-15] MEDS: SUBUTEX 8 MG SL ×2 (08:22→17:21)
--- NOTE | 2025-04-15 08:38 | W.PN.HOSP.TC ---
Today's Communication/Plan
-
Buprenorphine protocol
To resume OP methadone tomorrow
Discharge later today
Assessment / Plan
Assessment / Plan
#Severe opioid withdrawal
- Presented with COWS score 22; suspected xylazine withdrawal; last use 11 AM 04/11
- Was started on buprenorphine micro dosing protocol, had worsening and required initiation of Precedex
- Chronically on methadone 60 mg daily which was held on admission; withdrawal now starting to improve
- S/p Precedex; Will continue with buprenorphine protocol; clonidine patch + PO Q6 ordered; PRN opiates
- Will provide to scheduled doses of buprenorphine today, plan to resume OP methadone at her clinic tomorrow
- Plan to discontinue clonidine patch and transition back to 0.1 mg 3 times daily at discharge
- COWS monitoring while here
#Constipation
- Likely opioid induced, imaging with likely fecal impaction to proximal colon, no role for digital disimpaction with distal decompression
- Chronically on Linzess, was started on oral bowel regimen with suppositories and Fleet enema as well which was effective
- GI consulted, recommended to continue bowel regimen and plan for OP colonoscopy
- Plan to resume when back to light with as needed regimen at time of discharge
#Leukocytosis
- WBC 12.8 this morning, was normal on arrival; suspect reactive event
- Trend CBC and temperature curve off antibiotics for now
#Bipolar disorder
#MDD
- Remains on home Seroquel, lurasidone, and fluvoxamine
- Monitor QTc on multiple psychiatric agents
Diet: Regular
Thromboprophylaxis: SQ Lovenox
CODE STATUS: Full code
Disposition: Home, denied the cares. Plans to follow-up with methadone clinic in [place]
Anticipated Discharge: Within 24 hours
Subjective/Interval History
-
Date of Service: April 15, 2025
Seen and examined at the bedside. No acute events reported overnight. AFVSS this morning
Patient denies any complaints and states she feels quite well. States that she plans to follow-up with her methadone clinic tomorrow. Eager for discharge
Denies chest pain, dyspnea, palpitations, GI issues, urinary issues. Bowel status has been normal
Objective Data
-
Vital Signs:
Vital Signs
Temp Pulse Resp BP Pulse Ox
98.0 F 81 19 131/92 96
04/15/25 07:00 04/15/25 07:00 04/15/25 07:00 04/15/25 07:00 04/15/25 07:00
I&O
04/14/25 04/15/25 04/16/25
06:59 05:59 06:59
Intake Total 600 / 600 1080 / 1080
Balance 600 / 600 1080 / 1080
Review of Systems
-
History Source: Patient
All other systems: Reviewed and negative
Physical Exam
-
General: Well Developed, Well Nourished, No Apparent Distress and Appears Chronically Ill
HEENT: Normocephalic, Atraumatic, Moist Mucous Membranes and Anicteric
Respiratory: Clear to Auscultation and Non Labored Respirations; Negative Accessory Resp Muscle Use
Cardiac: Regular Rhythm and S1/S2; Negative Murmur, Rub or Gallop
GI: Soft, Nontender, Nondistended and Normal Bowel Sounds
Musculoskeletal: No Clubbing, No Cyanosis and No Edema
Skin: Warm and Dry; Negative Rash
Neuro: AO x 3, Nonfocal/Grossly Intact and Central Nerve's Intact
Psych: Calm
[2025-04-15] MEDS: ATARAX 50 MG PO (10:57)
[2025-04-15 11:00] VITALS: BP 120/82
--- NOTE | 2025-04-15 11:05 | CM ---
Patient will d/c later today. Patient declined [facility] services
Patient will follow up w/ OP Methadone clinic
No CM needs at this time
--- NOTE | 2025-04-15 14:52 | W.DCSUMMARY ---
Discharge Summary
Discharge Data
Date of Admission: 04/11/25
Date of Discharge: 04/15/25
Total time spent discharging patient (in min): 33
-
Pending Results: No
Hospital Course
Discharge provider: Héctor Barron DO
Discharge disposition: Home
Primary discharge diagnoses:
Severe opiate withdrawal (fentanyl and xylazine use)
Constipation due to opiates
Tachycardia
Chronic discharge diagnoses:
Bipolar disorder
Opioid use disorder
Hospital course:
35-year-old female with polysubstance abuse consisting of opiates that presented to the hospital with symptoms of opiate withdrawal including tremor, tachycardia, agitation. Initially required Precedex drip due to severe agitation however it was
titrated off within 24 hours of her admission and she was downgraded out of the ICU. Was started onto buprenorphine micro dosing protocol with escalating doses of buprenorphine as well as oxycodone as needed for breakthrough symptoms. Was also
started on clonidine patch for hemodynamic management of her withdrawal syndrome, and started on hydroxyzine as needed for breakthrough anxiety. Was noted to have significant proximal fecal impaction/constipation on imaging however responded to
enema and subsequently was stable from GI standpoint on standing bowel regimen. Her clinical condition improved. Had intermittent episodes of sinus tachycardia that improved as she recovered from opiate withdrawal. Completed buprenorphine
protocol while in the hospital, planned for follow-up with her methadone clinic on 04/16/2025 to continue her maintenance regimen. Was recommended to follow-up with gastroenterology after discharge for consideration of colonoscopy and possibly
methylnaltrexone. New prescription provided for Linzess and bisacodyl suppository as needed basis. Converted clonidine back to 0.1 mg 3 times daily and ordered as needed hydroxyzine which was sent to her pharmacy
Consultants:
Gastroenterology -- Héctor Saavedra MD
[facility] -- Tricia Lindo MD
Pertinent imaging findings:
CT A/P with IV and oral contrast (04/11/2025)
IMPRESSION: Constipation with large colonic fecal burden involving the ascending colon, transverse colon, and proximal to mid descending colon. In the distal descending colon, there is a relatively abrupt change in caliber to relatively collapsed
distal descending colon and sigmoid colon. Uncertain etiology. No apparent mass or wall thickening. No inflammatory soft tissue stranding. Dense metallic focus with streak artifact adjacent to the bladder dome. This may also be associated with the
adjacent cecum. Correlation with surgical history necessary.
Procedures: N/A
Follow-up:
Family doctor within 1 week
Methadone clinic on 04/16/2025
Gastroenterology within 2 weeks
Discharge Plan
-
Patient Disposition: Home (Routine Discharge)
Discharge Diagnosis/Procedures: Opioid withdrawal
Constipation due to opioid use
Methampthetamine/amphetamine + Urine drug screen
Condition: Fair
Diet: No restrictions
Activity: Other activity
Additional Activity: Avoid street drugs and alcohol
Driving Restrictions: No driving for 1 week
Bathing Restrictions: None
Blood Work: Follow up with family doctor for routine lab work
Others Tests: Follow-up with gastroenterology for consideration of colonoscopy
Instructions: Opioid use disorder
Referrals:
Héctor Saavedra MD [Active, Gastroenterology] - in two weeks
Sharita Parra DO [Family Provider, Family Practice]
Prescriptions:
New
hydroxyzine HCl 25 mg Tablet
50 mg PO Q6HPRN PRN (Reason: refractory anxiety) Qty: 60 0RF
bisacodyl 10 mg Suppository
10 mg OR DAILY PRN (Reason: Constipation) Qty: 30 0RF
Continued
fluvoxamine 25 mg Tablet
25 mg PO BID
quetiapine [Seroquel] 25 mg Tablet
25 mg PO DAILYPRN PRN (Reason: mental health)
clonidine HCl 0.1 mg Tablet
0.1 mg PO TIDPRN PRN (Reason: anxiety)
esomeprazole magnesium [Nexium] 40 mg Capsule,Delayed Release(Dr/Ec)
40 mg PO DAILY
norethindrone ac-eth estradiol [07/03 (21)] 1-20 mg-mcg Tablet
1 tab PO DAILY
methadone 10 mg/mL Concentrate
60 mg PO DAILY
Patient Comments:
patient goes to [facility] in [place] phone [phone] faxe [phone]
lurasidone [Latuda] 60 mg Tablet
60 mg PO DAILY
Linzess 290 mcg Capsule
290 mcg PO DAILY Qty: 30 0RF
Rx Instructions:
DO NOT TAKE IF HAVING LOOSE STOOLS OR DIARRHEA
Discharge Orders:
Discharge Patient (As Directed); Ordered 04/15/25
Ordered By: Héctor Barron
Discharge Date and Time
Print Language: MOSOT[place]
[2025-04-15 15:00] VITALS: BP 135/96
[2025-04-15] MEDS: STERILE WATER FOR INJECTION 2.1 ML IM (15:52)
[2025-04-15] MEDS: LOVENOX 40 MG SC (17:20)
== END 2025-04-15 17:43 | disposition home or self-care (01) | DRG 897 ==
LOC: 3 WEST ACU 21:41
PROVIDERS: Registered Nurse; ADMITTING PHYSICIAN Internal Medicine; ATTENDING PHYSICIAN Internal Medicine; CONSULT PHYSICIAN Internal Medicine; CONSULT PHYSICIAN Internal Medicine Critical Care Medicine; EMERGENCY PHYSICIAN Student in an Organized Health Care Education/Training Program; FAMILY PHYSICIAN Internal Medicine
DX: F11.23 Opioid dependence with withdrawal (principal); K59.03 Drug induced constipation; T40.2X5A Adverse effect of other opioids, initial encounter; F31.9 Bipolar disorder, unspecified; F41.9 Anxiety disorder, unspecified; J45.909 Unspecified asthma, uncomplicated; F17.200 Nicotine dependence, unspecified, uncomplicated; D72.829 Elevated white blood cell count, unspecified; Z79.899 Other long term (current) drug therapy
CPT/HCPCS: 71045; 74177; 80048; 80053; 80306; 80307; 81003; 81015; 82077; 82248; 83690; 83735; 84100; 84703; 85025; 85027; 85610; 85730; 86705; 86706; 86709; 87070; 87086; 87340; 87522; 93005; 96361; 96374; 99285; J2358; Q9967